=== PATIENT | female | born 1970 | race Caucasian/White ===

== ENCOUNTER 2017-05-27 21:06 | Emergency (ER) | payer BC ==
--- NOTE | 2017-05-27 21:11 | PDOC ---
Rapid Medical Evaluation Time Seen by Provider: 05/27/17 21:11 Medical Evaluation: 05/27/17 21:12 Healthy 47 year old female, occasional smoker, with chest pain since morning. Describes the pain as "someone sitting on my chest." No radiation of pain. Not pleuritic. Associated lightheadedness. Alert, oriented, no distress. RRR, S1/S2, no murmur. Lung CTAB. -EKG -CXR -Labs including CBC, BMP, cardiac profile, PT/INR -To Main ED for further evaluation Discharge Disposition - Referrals Referrals: Gregory Faulkner MD [Primary Care Provider] - - Patient Instructions - Post Discharge Activity
[2017-05-27 21:19] VITALS: TEMP 97.9; BMI 29.8
[2017-05-27 21:38] LABS: BASO % 0.8 % (0-2.0); EOS % 0.8 % (0-4.5); MCH 27.5 pg (25.7-33.7); MCHC 33.3 g/dl (32.0-36.0); MEAN CELL VOLUME 82.5 fl (80-96); MEAN PLT VOLUME 9.9 fl (7.5-11.1); NEUT % 59.3 % (42.8-82.8); PLATELET COUNT 178 K/MM3 (134-434); RDW 13.4 % (11.6-15.6); WHITE BLOOD COUNT 9.7 K/mm3 (4.0-10.0)
[2017-05-27 21:51] LABS: INR 1.06 (0.82-1.09)
[2017-05-27 22:10] LABS: ANION GAP 7 (8-16); BILIRUBIN,TOTAL 0.4 mg/dL (0.2-1.0); CALCIUM 9.2 mg/dL (8.5-10.1); CO2 26 mmol/L (21-32); CREATININE 0.7 mg/dL (0.55-1.02); GLUCOSE,RANDOM 107 mg/dL (74-106); SGOT/AST 10 U/L (15-37); SGPT/ALT 21 U/L (12-78); TOT PROT 7.3 g/dl (6.4-8.2)
[2017-05-27 22:13] LABS: ALK PHOS 61 U/L (45-117); CPK 73 IU/L (26-192); TROPONIN I < 0.02 ng/ml (0.00-0.05)
[2017-05-27] MEDS ORDERED: MECLIZINE HCL 25 MG TABLET (FP) PO ONE (23:42)
--- NOTE | 2017-05-27 23:42 | PDOC ---
History of Present Illness - General History Source: Patient Exam Limitations: No Limitations <Payal Rome - Last Filed: 05/27/17 23:48> <Mellisa Martinez - Last Filed: 05/28/17 02:27> - General Chief Complaint: Chest Pain Stated Complaint: CHEST PAIN Time Seen by Provider: 05/27/17 21:11 - History of Present Illness Initial Comments: 05/27/17 23:48 47 year old female with a significant past medical history of rapid afib during in 1998, occasional smoker, with chest pain since morning. She states that she was woken up from her sleep with spinning and felt chest pain. No radiation of pain, non pleuritic. She reports associated lightheadedness. No allergies. (Payal Rome) Past History <Payal Rome - Last Filed: 05/27/17 23:48> - Suicide/Smoking/Psychosocial Hx Smoking History: Never smoked Have you smoked in the past 12 months: No Information on smoking cessation initiated: No Hx Alcohol Use: No Drug/Substance Use Hx: No <Mellisa Martinez - Last Filed: 05/28/17 02:27> - Past Medical History Allergies/Adverse Reactions: Allergies Allergy/AdvReac Type Severity Reaction Status Date / Time No Known Allergies Allergy Verified 05/27/17 21:19 Home Medications: Ambulatory Orders NK [No Known Home Medication] 05/27/17 Review of Systems - Review of Systems Able to Perform ROS?: Yes <Payal Rome - Last Filed: 05/27/17 23:48> <Mellisa Martinez - Last Filed: 05/28/17 02:27> - Review of Systems Comments:: 05/27/17 23:49 CONSTITUTIONAL: Absent: fever, chills, diaphoresis, generalized weakness, malaise, loss of appetite HEENT: Absent: rhinorrhea, nasal congestion, throat pain, throat swelling, difficulty swallowing, mouth swelling, ear pain, eye pain, visual Changes CARDIOVASCULAR: Present: chest pain, lightheadedness Absent:syncope, palpitations, irregular heart rate,peripheral edema RESPIRATORY: Absent: cough, shortness of breath, dyspnea with exertion, orthopnea, wheezing, stridor, hemoptysis GASTROINTESTINAL: Absent: abdominal pain, abdominal distension, nausea, vomiting, diarrhea, constipation, melena, hematochezia GENITOURINARY: Absent: dysuria, frequency, urgency, hesitancy, hematuria, flank pain, genital pain MUSCULOSKELETAL: Absent: myalgia, arthralgia, joint swelling SKIN: Absent: rash, itching, pallor HEMATOLOGIC/IMMUNOLOGIC: Absent: easy bleeding, easy bruising, lymphadenopathy, frequent infections ENDOCRINE: Absent: unexplained weight gain, unexplained weight loss, heat intolerance, cold intolerance NEUROLOGIC: Absent: headache, focal weakness or paresthesias, dizziness, unsteady gait, seizure, mental status changes, bladder or bowel incontinence PSYCHIATRIC: Absent: anxiety, depression, suicidal or homicidal ideation, hallucinations. (Payal Rome) *Physical Exam <Payal Rome - Last Filed: 05/27/17 23:48> <Mellisa Martinez - Last Filed: 05/28/17 02:27> - Vital Signs Last Vital Signs Temp Pulse Resp BP Pulse Ox 97.9 F 84 16 138/76 100 05/27/17 21:15 05/27/17 21:15 05/27/17 21:15 05/27/17 21:15 05/27/17 21:15 - Physical Exam Comments: 05/27/17 23:49 GENERAL: Well developed, well nourished. Awake and alert. No acute distress. HEENT: Normocephalic, atraumatic. PERRLA, EOMI. No conjunctival pallor. Sclera are non- icteric. Moist mucous membranes. Oropharynx is clear. NECK: Supple. Full ROM. No JVD. Carotid pulses 2+ and symmetric, without bruits. No thyromegaly. No lymphadenopathy. CARDIOVASCULAR: Regular rate and rhythm. No murmurs, rubs, or gallops. Distal pulses are 2+ and symmetric. PULMONARY: No evidence of respiratory distress. Lungs clear to auscultation bilaterally. No wheezing, rales or rhonchi. ABDOMINAL: Soft. Non-tender. Non-distended. No rebound or guarding. No organomegaly. Normoactive bowel sounds. MUSCULOSKELETAL Normal range of motion at all joints. No bony deformities or tenderness. No CVA tenderness. EXTREMITIES: No cyanosis. No clubbing. No edema. No calf tenderness. SKIN: Warm and dry. Normal capillary refill. No rashes. No jaundice. NEUROLOGICAL: Alert, awake, appropriate. Cranial nerves 2-12 intact. No deficits to light touch and temperature in face, upper extremities and lower extremities. No motor deficits in the in face, upper extremities and lower extremities. Normoreflexic in the upper and lower extremities. Normal speech. Toes are down-going bilaterally. Gait is normal without ataxia. PSYCHIATRIC: Cooperative. Good eye contact. Appropriate mood and affect. (aPyal Rome) ED Treatment Course - LABORATORY CBC & Chemistry Diagram: 05/27/17 21:31 05/27/17 21:31 <Payal Rome - Last Filed: 05/27/17 23:48> - LABORATORY CBC & Chemistry Diagram: 05/27/17 21:31 05/27/17 21:31 <Mellisa Martinez - Last Filed: 05/28/17 02:27> - ADDITIONAL ORDERS Additional order review: Laboratory Results 05/28/17 05/27/17 05/27/17 01:44 21:31 21:31 PT with INR INR Sodium Potassium Chloride Carbon Dioxide Anion Gap BUN Creatinine Creat Clearance w eGFR Random Glucose Calcium Total Bilirubin AST ALT Alkaline Phosphatase Creatine Kinase 65 Troponin I < 0.02 B-Natriuretic Peptide 19.37 Total Protein Albumin Serum , Qual Negative 05/27/17 05/27/17 21:31 21:31 PT with INR 12.00 H INR 1.06 Sodium 139 Potassium 4.2 Chloride 106 Carbon Dioxide 26 Anion Gap 7 L BUN 16 Creatinine 0.7 Creat Clearance w eGFR > 60 Random Glucose 107 H Calcium 9.2 Total Bilirubin 0.4 AST 10 L ALT 21 Alkaline Phosphatase 61 Creatine Kinase 73 Troponin I < 0.02 B-Natriuretic Peptide Total Protein 7.3 Albumin 4.0 Serum , Qual 05/27/17 21:31 RBC 4.85 MCV 82.5 MCHC 33.3 RDW 13.4 MPV 9.9 Neutrophils % 59.3 Lymphocytes % 34.7 Monocytes % 4.4 Eosinophils % 0.8 Basophils % 0.8 - Medications Given in the ED: ED Medications Discontinued Medications Generic Name Dose Route Start Last Admin Trade Name Freq PRN Reason Stop Dose Admin Al Hydroxide/Mg Hydroxide 30 ml 05/28/17 00:02 05/28/17 01:06 Mylanta Suspension - PO 05/28/17 00:03 30 ml ONCE ONE Administration Meclizine HCl 25 mg 05/27/17 23:42 05/27/17 23:51 Antivert - PO 05/27/17 23:43 25 mg ONCE ONE Administration *DC/Admit/Observation/Transfer <Payal Rome - Last Filed: 05/27/17 23:48> <Mellisa Martinez - Last Filed: 05/28/17 02:27> Diagnosis at time of Disposition: Chest pain Qualifiers: Chest pain type: unspecified Qualified Code(s): R07.9 - Chest pain, unspecified - Discharge Dispostion Disposition: HOME Condition at time of disposition: Stable - Referrals Referrals: Gregory Faulkner MD [Primary Care Provider] - - Patient Instructions Printed Discharge Instructions: DI for Chest Pain Additional Instructions: please follow up with your doctor - Post Discharge Activity - Attestations Scribe Attestion: 05/27/17 23:49 Documentation prepared by JANINE Morales, acting as medical physicist for Mellisa Martinez MD/DO. (Payal Rome)
[2017-05-27] MEDS ORDERED: MECLIZINE HCL 25 MG TABLET (FP) ONE (23:49)
[2017-05-28] MEDS ORDERED: MAG HYDROX/AL HYDROX/SIMETH 355 ML ORAL.SUSP PO ONE (00:02)
[2017-05-28] MEDS ORDERED: MAG HYDROX/AL HYDROX/SIMETH 30 ML UNIT-DOSE CUP ONE (01:00)
[2017-05-28 02:21] LABS: CPK 65 IU/L (26-192); TROPONIN I < 0.02 ng/ml (0.00-0.05)
[2017-05-28 02:53] VITALS: BP 111/61; PULSE 67
--- NOTE | 2017-05-28 11:19 | EKG ---
Test Reason : Blood Pressure : / mmHG Vent. Rate : 075 BPM Atrial Rate : 075 BPM P-R Int : 114 ms QRS Dur : 086 ms QT Int : 386 ms P-R-T Axes : 050 -06 033 degrees QTc Int : 431 ms NORMAL SINUS RHYTHM LOW VOLTAGE QRS BORDERLINE ECG WHEN COMPARED WITH ECG OF 20-FEB-1999 20:25, PREVIOUS ECG HAS UNDETERMINED RHYTHM, NEEDS REVIEW Confirmed by JAVIER YE, BART ([id number]) on 05/28/2017 11:18:52 AM Referred By: Confirmed By:BART HERRERA MD
== END 2017-05-28 02:52 | disposition home or self-care (01) ==
LOC: JER 21:06
DX: R07.9 Chest pain, unspecified (principal); Z72.0 Tobacco use
CPT/HCPCS: 36415; 71020-TC; 80053; 82550; 83880; 84484; 84703; 85025; 85610; 93005; 93010; 99283-25